=== PATIENT | male | born 1945 | race Caucasian/White ===

== ENCOUNTER → 2016-05-08 | Outpatient (CLI) | payer MEDICARE, OTHER ==
[2016-05-08 08:53] LABS: ABSOLUTE EOSINOPHILS # (AUTO) 0.1 10^3/uL (0.0-0.6); ABSOLUTE LYMPHOCYTES (AUTO) 2.2 10^3/uL (0.5-4.7); ABSOLUTE MONOCYTES (AUTO) 0.4 10^3/uL (0.1-1.4); ABSOLUTE NEUT (AUTO) 3.7 10^3/uL (1.7-8.2); BASOPHILS % (AUTO) 0.7 % (0-2); EOSINOPHILS % (AUTO) 2.2 % (0-6); HEMATOCRIT 45.5 % (37.9-51.0); HEMOGLOBIN 14.7 g/dL (13.5-17.0); HGB HCT DIFFERENCE -1.4; LYMPHOCYTES % (AUTO) 33.5 % (13-45); MEAN CORPUSCULAR HEMOGLOBIN 30.5 pg (27.0-33.4); MEAN CORPUSCULAR HGB CONC 32.2 g/dL (32.0-36.0); MEAN CORPUSCULAR VOLUME 95 fl (80-97); MONOCYTES % (AUTO) 5.9 % (3-13); RED BLOOD COUNT 4.81 10^6/uL (4.35-5.55); RED CELL DISTRIBUTION WIDTH 13.1 % (11.5-14.0); SEGMENTED NEUTROPHILS % (AUTO) 57.7 % (42-78); WHITE BLOOD COUNT 6.4 10^3/uL (4.0-10.5)
[2016-05-08 09:13] LABS: ALANINE AMINOTRANSFERASE 51 U/L (21-72); ALBUMIN 4.8 g/dL (3.5-5.0); ALKALINE PHOSPHATASE 60 U/L (38-126); ANION GAP 10 (5-19); ASPARTATE AMINO TRANSFERASE 34 U/L (17-59); BILIRUBIN,TOTAL 0.8 mg/dL (0.2-1.3); BLOOD UREA NITROGEN 14 mg/dL (7-20); CARBON DIOXIDE 31 mmol/L (22-30); CHLORIDE 106 mmol/L (98-107); CHOLESTEROL 155.46 mg/dL (0-200); CREATININE RESULT 0.82 mg/dL (0.52-1.25); Direct HDL 61 mg/dL (>40); GLUCOSE 95 mg/dL (75-110); TRIGLYCERIDES 103 mg/dL (<150)
[2016-05-08 09:23] LABS: DIRECT LDL 76 mg/dL (<100)
[2016-05-09 08:42] LABS: HEPATITIS C VIRUS AB <0.1 s/co ratio (0.0-0.9)
== END ==
LOC: OD 08:01
PROVIDERS: ATTEND Internal Medicine
DX: I10 Essential (primary) hypertension (principal); R35.1 Nocturia; E78.5 Hyperlipidemia, unspecified; M10.9 Gout, unspecified; K21.9 Gastro-esophageal reflux disease without esophagitis
CPT/HCPCS: 36415; 80053; 80061; 84153; 84443; 85025; 86704; 86705; 86706; 86707; 86803; 87340; 87350

== ENCOUNTER → 2017-06-10 | Outpatient (CLI) | payer MEDICARE, OTHER ==
[2017-06-10 11:12] LABS: ABSOLUTE EOSINOPHILS # (AUTO) 0.1 10^3/uL (0.0-0.6); ABSOLUTE LYMPHOCYTES (AUTO) 1.9 10^3/uL (0.5-4.7); ABSOLUTE MONOCYTES (AUTO) 0.4 10^3/uL (0.1-1.4); ABSOLUTE NEUT (AUTO) 3.5 10^3/uL (1.7-8.2); BASOPHILS % (AUTO) 0.8 % (0-2); EOSINOPHILS % (AUTO) 1.9 % (0-6); HEMATOCRIT 44.5 % (37.9-51.0); HEMOGLOBIN 15.1 g/dL (13.5-17.0); MEAN CORPUSCULAR HEMOGLOBIN 31.2 pg (27.0-33.4); MEAN CORPUSCULAR VOLUME 92 fl (80-97); PLATELET COUNT 186 10^3/uL (150-450); RED BLOOD COUNT 4.84 10^6/uL (4.35-5.55); RED CELL DISTRIBUTION WIDTH 13.2 % (11.5-14.0); SEGMENTED NEUTROPHILS % (AUTO) 59.3 % (42-78); TOTAL CELLS COUNTED % (AUTO) 100 %; WHITE BLOOD COUNT 5.9 10^3/uL (4.0-10.5)
[2017-06-10 11:51] LABS: ALANINE AMINOTRANSFERASE 58 U/L (21-72); ALBUMIN 4.9 g/dL (3.5-5.0); ALKALINE PHOSPHATASE 63 U/L (38-126); ANION GAP 15 (5-19); ASPARTATE AMINO TRANSFERASE 40 U/L (17-59); BILIRUBIN,DIRECT 0.1 mg/dL (0.0-0.4); BILIRUBIN,TOTAL 0.7 mg/dL (0.2-1.3); BLOOD UREA NITROGEN 19 mg/dL (7-20); CALCIUM 10.9 mg/dL (8.4-10.2); CARBON DIOXIDE 26 mmol/L (22-30); CHLORIDE 106 mmol/L (98-107); CHOLESTEROL 166.24 mg/dL (0-200); GLUCOSE 89 mg/dL (75-110); SODIUM 146.8 mmol/L (137-145); TOTAL PROTEIN 6.9 g/dL (6.3-8.2); TRIGLYCERIDES 122 mg/dL (<150)
[2017-06-10 12:01] LABS: DIRECT LDL 85 mg/dL (<100)
== END ==
LOC: OD 09:53
PROVIDERS: ATTEND Internal Medicine
DX: I10 Essential (primary) hypertension (principal); G47.33 Obstructive sleep apnea (adult) (pediatric); E78.5 Hyperlipidemia, unspecified; R35.1 Nocturia; R53.83 Other fatigue
CPT/HCPCS: 36415; 80053; 80061; 84153; 84443; 84550; 85025

== ENCOUNTER → 2017-12-07 | Outpatient (CLI) | payer MEDICARE, OTHER ==
[2017-12-07 09:46] LABS: ABSOLUTE EOSINOPHILS # (AUTO) 0.1 10^3/uL (0.0-0.6); ABSOLUTE LYMPHOCYTES (AUTO) 2.1 10^3/uL (0.5-4.7); ABSOLUTE MONOCYTES (AUTO) 0.3 10^3/uL (0.1-1.4); ABSOLUTE NEUT (AUTO) 3.5 10^3/uL (1.7-8.2); BASOPHILS % (AUTO) 0.7 % (0-2); EOSINOPHILS % (AUTO) 1.8 % (0-6); HEMATOCRIT 42.4 % (37.9-51.0); HEMOGLOBIN 14.7 g/dL (13.5-17.0); LYMPHOCYTES % (AUTO) 33.8 % (13-45); MEAN CORPUSCULAR HEMOGLOBIN 31.8 pg (27.0-33.4); MEAN CORPUSCULAR HGB CONC 34.7 g/dL (32.0-36.0); MEAN CORPUSCULAR VOLUME 92 fl (80-97); MONOCYTES % (AUTO) 5.6 % (3-13); PLATELET COUNT 194 10^3/uL (150-450); RED BLOOD COUNT 4.62 10^6/uL (4.35-5.55); RED CELL DISTRIBUTION WIDTH 13.1 % (11.5-14.0); SEGMENTED NEUTROPHILS % (AUTO) 58.1 % (42-78); TOTAL CELLS COUNTED % (AUTO) 100 %; WHITE BLOOD COUNT 6.1 10^3/uL (4.0-10.5)
[2017-12-07 10:07] LABS: ALANINE AMINOTRANSFERASE 46 U/L (21-72); ALBUMIN 4.6 g/dL (3.5-5.0); ALKALINE PHOSPHATASE 53 U/L (38-126); ANION GAP 14 (5-19); ASPARTATE AMINO TRANSFERASE 30 U/L (17-59); BILIRUBIN,DIRECT 0.3 mg/dL (0.0-0.4); BILIRUBIN,TOTAL 0.8 mg/dL (0.2-1.3); BLOOD UREA NITROGEN 14 mg/dL (7-20); CALCIUM 9.6 mg/dL (8.4-10.2); CARBON DIOXIDE 26 mmol/L (22-30); CHLORIDE 107 mmol/L (98-107); CHOLESTEROL 141.76 mg/dL (0-200); GLUCOSE 95 mg/dL (75-110); POTASSIUM 4.3 mmol/L (3.6-5.0); SODIUM 147.1 mmol/L (137-145); TRIGLYCERIDES 97 mg/dL (<150)
[2017-12-07 10:17] LABS: DIRECT LDL 58 mg/dL (<100)
== END ==
LOC: OD 08:03
PROVIDERS: ATTEND Internal Medicine
DX: I10 Essential (primary) hypertension (principal); E78.5 Hyperlipidemia, unspecified; R53.83 Other fatigue; R73.9 Hyperglycemia, unspecified; E03.9 Hypothyroidism, unspecified
CPT/HCPCS: 36415; 80053; 80061; 83036; 83735; 84443; 85025

== ENCOUNTER → 2018-10-21 | Outpatient (CLI) | payer MEDICARE, OTHER ==
[2018-10-21 08:47] LABS: ABSOLUTE BASOPHILS # (AUTO) 0.1 10^3/uL (0.0-0.2); ABSOLUTE EOSINOPHILS # (AUTO) 0.1 10^3/uL (0.0-0.6); ABSOLUTE MONOCYTES (AUTO) 0.4 10^3/uL (0.1-1.4); ABSOLUTE NEUT (AUTO) 3.6 10^3/uL (1.7-8.2); BASOPHILS % (AUTO) 0.9 % (0-2); EOSINOPHILS % (AUTO) 1.8 % (0-6); HEMATOCRIT 40.7 % (37.9-51.0); HEMOGLOBIN 14.1 g/dL (13.5-17.0); LYMPHOCYTES % (AUTO) 32.7 % (13-45); MEAN CORPUSCULAR HEMOGLOBIN 31.6 pg (27.0-33.4); MEAN CORPUSCULAR HGB CONC 34.5 g/dL (32.0-36.0); MEAN CORPUSCULAR VOLUME 91 fl (80-97); MONOCYTES % (AUTO) 6.1 % (3-13); PLATELET COUNT 181 10^3/uL (150-450); RED BLOOD COUNT 4.45 10^6/uL (4.35-5.55); SEGMENTED NEUTROPHILS % (AUTO) 58.5 % (42-78); TOTAL CELLS COUNTED % (AUTO) 100 %; WHITE BLOOD COUNT 6.1 10^3/uL (4.0-10.5)
[2018-10-21 09:08] LABS: ALANINE AMINOTRANSFERASE 57 U/L (21-72); ALBUMIN 4.7 g/dL (3.5-5.0); ALKALINE PHOSPHATASE 58 U/L (38-126); ANION GAP 9 (5-19); ASPARTATE AMINO TRANSFERASE 35 U/L (17-59); BLOOD UREA NITROGEN 19 mg/dL (7-20); CALCIUM 9.6 mg/dL (8.4-10.2); CARBON DIOXIDE 29 mmol/L (22-30); CHLORIDE 105 mmol/L (98-107); CHOLESTEROL 151.58 mg/dL (0-200); GLUCOSE 101 mg/dL (75-110); POTASSIUM 4.5 mmol/L (3.6-5.0); SODIUM 143.2 mmol/L (137-145)
[2018-10-21 09:10] LABS: TRIGLYCERIDES 122 mg/dL (<150)
[2018-10-21 09:14] LABS: BILIRUBIN,TOTAL 0.7 mg/dL (0.2-1.3)
[2018-10-21 09:19] LABS: DIRECT LDL 72 mg/dL (<100)
== END ==
LOC: OD 08:12
PROVIDERS: ATTEND Internal Medicine
DX: I10 Essential (primary) hypertension (principal); E78.5 Hyperlipidemia, unspecified; R53.83 Other fatigue; R35.1 Nocturia
CPT/HCPCS: 36415; 80053; 80061; 84153; 84443; 85025

== ENCOUNTER → 2019-06-22 | Outpatient (CLI) | payer MEDICARE, OTHER ==
[2019-06-22 10:29] LABS: ABSOLUTE BASOPHILS # (AUTO) 0.1 10^3/uL (0.0-0.2); ABSOLUTE EOSINOPHILS # (AUTO) 0.1 10^3/uL (0.0-0.6); ABSOLUTE LYMPHOCYTES (AUTO) 1.7 10^3/uL (0.5-4.7); ABSOLUTE MONOCYTES (AUTO) 0.3 10^3/uL (0.1-1.4); ABSOLUTE NEUT (AUTO) 3.6 10^3/uL (1.7-8.2); BASOPHILS % (AUTO) 0.9 % (0-2); EOSINOPHILS % (AUTO) 1.5 % (0-6); HEMATOCRIT 39.9 % (37.9-51.0); HEMOGLOBIN 14.3 g/dL (13.5-17.0); LYMPHOCYTES % (AUTO) 29.4 % (13-45); MEAN CORPUSCULAR HEMOGLOBIN 32.4 pg (27.0-33.4); MEAN CORPUSCULAR HGB CONC 35.8 g/dL (32.0-36.0); MEAN CORPUSCULAR VOLUME 91 fl (80-97); MONOCYTES % (AUTO) 5.7 % (3-13); PLATELET COUNT 184 10^3/uL (150-450); RED BLOOD COUNT 4.41 10^6/uL (4.35-5.55); RED CELL DISTRIBUTION WIDTH 13.2 % (11.5-14.0); SEGMENTED NEUTROPHILS % (AUTO) 62.5 % (42-78); TOTAL CELLS COUNTED % (AUTO) 100 %; WHITE BLOOD COUNT 5.8 10^3/uL (4.0-10.5)
[2019-06-22 10:51] LABS: ALBUMIN 4.6 g/dL (3.5-5.0); ALKALINE PHOSPHATASE 62 U/L (38-126); ANION GAP 10 (5-19); ASPARTATE AMINO TRANSFERASE 37 U/L (17-59); BILIRUBIN,DIRECT 0.3 mg/dL (0.0-0.4); BILIRUBIN,TOTAL 0.8 mg/dL (0.2-1.3); BLOOD UREA NITROGEN 20 mg/dL (7-20); CALCIUM 9.9 mg/dL (8.4-10.2); CARBON DIOXIDE 29 mmol/L (22-30); CHLORIDE 105 mmol/L (98-107); CHOLESTEROL 140.76 mg/dL (0-200); GLUCOSE 91 mg/dL (75-110); POTASSIUM 4.4 mmol/L (3.6-5.0); TOTAL PROTEIN 7.3 g/dL (6.3-8.2); TRIGLYCERIDES 97 mg/dL (<150); URIC ACID 5.9 mg/dL (3.5-8.5)
[2019-06-22 11:07] LABS: DIRECT LDL 72 mg/dL (<100)
== END ==
LOC: OD 09:09
PROVIDERS: ATTEND Internal Medicine
DX: I10 Essential (primary) hypertension (principal); E78.5 Hyperlipidemia, unspecified; M10.9 Gout, unspecified; R35.1 Nocturia
CPT/HCPCS: 36415; 80053; 80061; 84153; 84443; 84550; 85025

== ENCOUNTER 2019-12-09 10:11 | Day surgery (SDC) | payer MEDICARE, OTHER ==
[~2019-12-09 10:11] MED LIST: CHONDR SU A NA/HYALUR INTRAOC KIT (SURGICARE) ONE; EPINEPHRINE INJ/PF 1 MG/1 ML AMPULE ONE; KETOROLAC TROMETHAMINE 0.45% 4 DROP/0.4 ML DROPERETTE OD PRN; LIDOCAINE 1%/PHENYLEPHRINE 1.5% 0.8 ML SYRINGE ONE
[2019-12-09] MEDS ORDERED: MIDAZOLAM 2 MG/2 ML INJ ONE (10:28)
[2019-12-09] MEDS ORDERED: ONDANSETRON HCL INJ/PF 4 MG/2 ML SDV ONE (10:28)
[2019-12-09] MEDS ORDERED: FENTANYL CITRATE INJ/PF 100 MCG/2 ML AMPUL ONE (10:28)
[2019-12-09] MEDS: TETRACAINE HCL 0.5% OPH SOLN 4 ML OD PRN ×3 (10:45→11:16)
[2019-12-09] MEDS: TROPICAMIDE 1% OPH SOLN 15 ML OD PRN ×3 (10:45→11:07)
[2019-12-09] MEDS: BESIFLOXACIN HCL 0.6% OPH SUSP 5 ML BOTTLE OD PRN ×4 (10:45→11:37)
[2019-12-09] MEDS: CYCLOPENTOLATE 0.2%/PHENYLEPHRINE 1% OPH SOLN 2 ML OD PRN ×3 (10:45→11:07)
[2019-12-09] MEDS: DORZOLAMIDE HCL 2%/TIMOLOL MALEAT 0.5% OPH SOLN 10 ML OD PRN ×2 (11:37)
--- NOTE | 2019-12-09 12:06 | Operative Report ---
Operative Report-[facility] Operative Report: DATE OF SURGERY: December 09, 2019 PREOPERATIVE DIAGNOSIS: NUCLEAR CATARACT, RIGHT EYE. POSTOPERATIVE DIAGNOSIS: NUCLEAR CATARACT, RIGHT EYE. PROCEDURE PERFORMED: PHACOEMULSIFICATION WITH POSTERIOR CHAMBER INTRAOCULAR LENS IMPLANT, RIGHT EYE. SURGEON: Fermin Spears DO MEDICATIONS AND ANESTHESIA: Versed: IV Versed Tetracaine drops: 1 to 2 drops given as needed COMPLICATION: None INDICATIONS FOR SURGERY: Medical necessity: Best corrected visual acuity worse than 20/40 secondary to cataracts with impairment of ability to carry out needs or desired activities, blurred vision, visual distortion, reduced contrast sensitivity and/or glare with association functional impairment and supporting documentation/testing, and cataracts causing symptomatic impairment of visual functions not corrected with tolerable changes in glasses or contact lenses interfering with activities of daily life. PROCEDURE: Consent: The risks, benefits and alternatives of this procedures was discussed with the patient. The patient read and signed the consent forms, was identified and was seated in the exam chair. IOL: MX 60 E 21.0 IOL Diopters: Phacoemulsification with posterior chamber intraocular lens implant: The face was prepped with 5% povidone iodine solution, and a few drops of 5% povidone iodine solution was instilled into the inferior fornix. A non-fenestrated drape was placed over the eye and the lids were parted with the speculum. A paracentesis was made with a 15 degree blade, and 1% lidocaine MPF followed by viscoelastic was injected into the anterior chamber. A 2.4 mm metal micro- keratome was used to create a temporal clear corneal incision. A circular anterior capsulorrhexis was created, followed by hydro-dissection and hydro- delineation. The phacoemulsification hand piece was inserted and the nucleus was removed with the Phaco chop technique. The irrigation-aspiration hand piece was used to remove the residual cortex, and vacuum the posterior capsule. The capsular bag was inflated and viscoelastic and the above-mentioned IOL was injected into the eye with care to insert both leaning and trailing haptics in the capsular bag. The irrigation/aspiration hand piece was reinserted to remove residual viscoelastic from the capsular bag and anterior chamber. The corneal incision was hydrated, and anterior chamber was inflated with sterile BSS via the paracentesis site, and found to be watertight. Postop medication: 1 drop of prednisolone into operative by followed by 1 drop of Cosopt into operative eye followed by 1 drop of Besivance intraoperative by other:
== END 2019-12-09 12:10 | disposition home or self-care (01) ==
LOC: SC 10:11
PROVIDERS: ATTEND Ophthalmology
DX: H25.11 Age-related nuclear cataract, right eye (principal); I10 Essential (primary) hypertension; E78.00 Pure hypercholesterolemia, unspecified; Z79.899 Other long term (current) drug therapy; Z79.82 Long term (current) use of aspirin; Z87.891 Personal history of nicotine dependence; G47.33 Obstructive sleep apnea (adult) (pediatric); Z85.828 Personal history of other malignant neoplasm of skin
CPT/HCPCS: 66984; V2632; J2250; J3490 ×3; A9270; J0171; J2405; 142; J3010

== ENCOUNTER 2019-12-23 07:26 | Day surgery (SDC) | payer MEDICARE, OTHER ==
[~2019-12-23 07:26] MED LIST changes: -CHONDR SU A NA/HYALUR INTRAOC KIT (SURGICARE) ONE; -EPINEPHRINE INJ/PF 1 MG/1 ML AMPULE ONE; +FENTANYL CITRATE INJ/PF 100 MCG/2 ML AMPUL ONE; -KETOROLAC TROMETHAMINE 0.45% 4 DROP/0.4 ML DROPERETTE OD PRN; +KETOROLAC TROMETHAMINE 0.45% 4 DROP/0.4 ML DROPERETTE OS PRN; -LIDOCAINE 1%/PHENYLEPHRINE 1.5% 0.8 ML SYRINGE ONE; +MIDAZOLAM 2 MG/2 ML INJ ONE; +ONDANSETRON HCL INJ/PF 4 MG/2 ML SDV ONE
[2019-12-23] MEDS ORDERED: EPINEPHRINE INJ/PF 1 MG/1 ML AMPULE ONE (07:34)
[2019-12-23] MEDS ORDERED: LIDOCAINE 1%/PHENYLEPHRINE 1.5% 0.8 ML SYRINGE ONE (07:34)
[2019-12-23] MEDS ORDERED: CHONDR SU A NA/HYALUR INTRAOC KIT (SURGICARE) ONE (07:35)
[2019-12-23] MEDS: BESIFLOXACIN HCL 0.6% OPH SUSP 5 ML BOTTLE OS PRN ×4 (08:03→08:57)
[2019-12-23] MEDS: TROPICAMIDE 1% OPH SOLN 15 ML OS PRN ×3 (08:03→08:23)
[2019-12-23] MEDS: CYCLOPENTOLATE 0.2%/PHENYLEPHRINE 1% OPH SOLN 2 ML OS PRN ×3 (08:03→08:23)
[2019-12-23] MEDS: TETRACAINE HCL 0.5% OPH SOLN 4 ML OS PRN ×3 (08:04→08:39)
[2019-12-23] MEDS: DORZOLAMIDE HCL 2%/TIMOLOL MALEAT 0.5% OPH SOLN 10 ML OS PRN ×2 (08:57)
[2019-12-23] MEDS: PREDNISOLONE ACETATE 1% OPH SUSP 5 ML OS PRN ×2 (08:57)
--- NOTE | 2019-12-23 15:47 | Operative Report ---
Operative Report[facility] Operative Report: DATE OF SURGERY: December 23, 2019 PREOPERATIVE DIAGNOSIS: NUCLEAR CATARACT, LEFT EYE. POSTOPERATIVE DIAGNOSIS: NUCLEAR CATARACT, LEFT EYE. PROCEDURE PERFORMED: PHACOEMULSIFICATION WITH POSTERIOR CHAMBER INTRAOCULAR LENS IMPLANT, LEFT EYE. SURGEON: Fermin Spears DO MEDICATIONS AND ANESTHESIA: Versed: IV Versed Tetracaine drops: 1 to 2 drops given as needed COMPLICATION: None INDICATIONS FOR SURGERY: Medical necessity: Best corrected visual acuity worse than 20/40 secondary to cataracts with impairment of ability to carry out needs or desired activities, blurred vision, visual distortion, reduced contrast sensitivity and/or glare with association functional impairment and supporting documentation/testing, and cataracts causing symptomatic impairment of visual functions not corrected with tolerable changes in glasses or contact lenses interfering with activities of daily life. PROCEDURE: Consent: The risks, benefits and alternatives of this procedures was discussed with the patient. The patient read and signed the consent forms, was identified and was seated in the exam chair. IOL: MX 60 E 20.5 IOL Diopters: Phacoemulsification with posterior chamber intraocular lens implant: The face was prepped with 5% povidone iodine solution, and a few drops of 5% povidone iodine solution was instilled into the inferior fornix. A non-fenestrated drape was placed over the eye and the lids were parted with the speculum. A paracentesis was made with a 15 degree blade, and 1% lidocaine MPF followed by viscoelastic was injected into the anterior chamber. A 2.4 mm metal micro- keratome was used to create a temporal clear corneal incision. A circular anterior capsulorrhexis was created, followed by hydro-dissection and hydro- delineation. The phacoemulsification hand piece was inserted and the nucleus was removed with the Phaco chop technique. The irrigation-aspiration hand piece was used to remove the residual cortex, and vacuum the posterior capsule. The capsular bag was inflated and viscoelastic and the above-mentioned IOL was injected into the eye with care to insert both leaning and trailing haptics in the capsular bag. The irrigation/aspiration hand piece was reinserted to remove residual viscoelastic from the capsular bag and anterior chamber. The corneal incision was hydrated, and anterior chamber was inflated with sterile BSS via the paracentesis site, and found to be watertight. Postop medication:1 drop of prednisolone into operative by followed by 1 drop of Cosopt into operative eye followed by 1 drop of Besivance intraoperative by Other:
== END 2019-12-23 09:30 | disposition home or self-care (01) ==
LOC: SC 07:26
PROVIDERS: ATTEND Ophthalmology
DX: H25.12 Age-related nuclear cataract, left eye (principal); Z98.41 Cataract extraction status, right eye; F17.210 Nicotine dependence, cigarettes, uncomplicated; I10 Essential (primary) hypertension; E78.00 Pure hypercholesterolemia, unspecified; M10.9 Gout, unspecified; G47.33 Obstructive sleep apnea (adult) (pediatric); Z85.828 Personal history of other malignant neoplasm of skin; Z79.899 Other long term (current) drug therapy; Z79.82 Long term (current) use of aspirin
CPT/HCPCS: 142; J0171; J2250; J2405; J3010; J3490; V2632

== ENCOUNTER → 2020-02-29 | Outpatient (CLI) | payer MEDICARE, OTHER ==
[2020-02-29 12:32] VITALS: BP 151/68
--- NOTE | 2020-02-29 12:32 | ER [facility] ASSESSMENT REPORT ---
Intake - In the Last 14 days Have you traveled outside [place]?: No Have you been in close contact with someone CONFIRMED: No Worked in Healthcare?: No - Symptoms Subjective Fever(Inman feverish): No Chills: Yes Muscule Aches: No Runny Nose: No Sore Throat: No Cough (New or worsening chronic cough): Yes Shortness of breath: No Nausea or Vomiting: No Headache: Yes Abdominal Pain: No Diarrhea(3 or more loose stools in last 24 hours): No - Do you have any of the following Chronic lung disease: Asthma or emphysema or COPD: No Cystic Fibrosis: No Diabetes: No High Blood Pressure: Yes Cardiovascular Disease: Yes Chronic Kidney Disease: No Chronic Liver Disease: No Chronic blood disorder like Sickle Cell Disease: No Weak immune system due to disease or medication: No Neurologic condition that limits movement: No Developmental delay - Moderate to Severe: No Recent (within past 2 weeks) or current : No Morbid Obesity (>100 pounds over ideal weight): No - Objective Temperature: 98.1 F Pulse Rate: 72 Respiratory Rate: 18 Blood Pressure: 151/68 O2 Sat by Pulse Oximetry: 96 Objective: Given above, testing performed: If Testing Performed: Test Specimen Type Sent to General - General Information source: Patient Notes: Patient presents to the [facility] for screening for the coronavirus. Patient reports having chills, cough and headache for the past week. Patient has an underlying history of high blood pressure and cholesterol. - Related Data Allergies/Adverse Reactions: No Known Allergies Allergy (Verified 12/23/19 08:04) Past Medical History - General Information source: Patient - Social History Smoking Status: Former Smoker - Past Medical History Cardiac Medical History: Reports: Hx Hypercholesterolemia, Hx Hypertension Denies: Hx Coronary Artery Disease, Hx Heart Attack Neurological Medical History: Denies: Hx Cerebrovascular Accident, Hx Seizures GI Medical History: Denies: Hx Hepatitis, Hx Hiatal Hernia, Hx Ulcer Musculoskeletal Medical History: Reports Hx Arthritis Infectious Medical History: Denies: Hx Hepatitis Past Surgical History: Reports: Other - Eye surgery. Denies: Hx Open Heart Surgery, Hx Pacemaker Physical Exam - Notes Notes: The patient was evaluated during the global Covid 19 pandemic, and that diagnosis was suspected/considered upon their initial presentation. Their evaluation, treatment and testing was consistent with current guidelines for patients who present with complaints or symptoms that may be related to Covid 19. Full physical exam could not be performed due to covid 19 isolation protocols. Constitutional: Nontoxic appearance, no acute distress Eyes: Nonicteric, extraocular movements intact, sclera clear Cardiovascular: Heart rate and rhythm regular, no JVD Respiratory: Breath sounds clear bilaterally, nonlabored breathing, no use of accessory muscles, no tachypnea Gastrointestinal: Abdomen not distended Muculoskeletal: Moves all extremities well Skin: Normal color Neuro: Awake alert oriented, normal speech Psych: Normal mood and affect Diagnostic Results Laboratory Results: Patient presents with upper respiratory symptoms worrisome for possible Covid 19. Patient does not have emergency worrying symptoms such as difficulty breathing, shortness of breath, chest pain, pressure, confusion or cyanosis. Patient appears suitable for discharge as vital signs are stable and patient is nontoxic in appearance. Good return precautions have been discussed with patient, patient verbalized understanding and is agreeable with discharge plan of care at this time. Patient Education/Counseling Counseling/Education: Patient was provided with discharge information including: As a person under investigation for Covid 19, the [place] department of Health and Human Services, division of public health advises you to adhere to the following guidance until your test results are reported to you. If your test result is positive, you will receive additional information from your provider and your local health department at that time. Remain at home until you are cleared by the health provider or public health authorities. Keep a log of visitors to your home, notify any visitors to your home of your isolation status. If you plan to move to a new address or leave the [facility], notify the local health department in your County. Call your doctor or seek care if you have an urgent medical need. Before seeking medical care, call ahead to get instructions from the provider before arriving at the medical office clinic or hospital. Notify them that you are being tested for the virus that causes Covid 19 so that arrangements can be made, as necessary, to prevent transmission to others in the healthcare setting. Next, notify the local health department in your county. If a medical emergency arises and you need to call 911, inform the first responders that you are being tested for the virus that causes Covid 19. Next, notify the local health department in your county. [facility] Discharge - Discharge Clinical Impression: Encounter for screening laboratory testing for COVID-19 virus Condition: Stable Disposition: Home; Selfcare
[2020-02-29 13:02] LABS: A TYPE INFLUENZA AG NEGATIVE (NEGATIVE); B INFLUENZA AG NEGATIVE (NEGATIVE)
== END ==
LOC: RDC 11:19
PROVIDERS: ATTEND Nurse Practitioner Family
DX: Z20.828 Contact with and (suspected) exposure to other viral communicable diseases (principal)
CPT/HCPCS: 87804; 99201; U0003; G0463; C9803; 87635; 99211

== ENCOUNTER 2020-04-26 11:44 | Inpatient (IN) | payer MEDICARE, OTHER ==
--- NOTE | 2020-04-26 12:59 | ER Document Report ---
ED Medical Screen (RME) - General Stated Complaint: FEVER/POSSIBLE SEPSIS Time Seen by Provider: 04/26/20 12:51 Primary Care Provider: GUERRERO POST MD [Primary Care Provider] - Follow up as needed TRAVEL OUTSIDE OF THE [place] IN LAST 30 DAYS: No - HPI Notes: 04/26/20 12:57 74-year-old male with a history of hypertension presents to the emergency room today for fevers, states that she believes he has had a bladder infection for the last 3 days and he is increased confusion today. They were on their way to go to [place] to see his urologist, Dr. Grimes, for concern of bladder infection but he did fall from the toilet onto the floor, they called the ambulance and brought him to [facility] ED. Denies any head trauma or change in level consciousness. is concerned that there is some confusion and weakness related to the bladder infection. Patient is not on any antibiotics. He did test negative for Covid in the ambulance. Denies any chest pain, shortness of breath, nausea, vomiting, diarrhea, cough, cold. has noticed some hematuria in his urine I have greeted and performed a rapid initial assessment of this patient. A comprehensive ED assessment and evaluation of the patient, analysis of test results and completion of the medical decision making process will be conducted by additional ED providers. PHYSICAL EXAMINATION: GENERAL: Chronically ill well-nourished and in no acute distress. NECK: Normal range of motion CV: s1, s2 regular LUNGS: No respiratory distress The patient was evaluated during a global COVID-19 pandemic and that diagnosis was suspected/considered upon their initial presentation. Their evaluation, treatment and testing was consistent with current guidelines for patients who present with complaints or symptoms and may be related to COVID-19. - Related Data Allergies/Adverse Reactions: No Known Allergies Allergy (Verified 12/23/19 08:04) Past Medical History - Past Medical History Cardiac Medical History: Reports: Hx Hypercholesterolemia, Hx Hypertension Denies: Hx Coronary Artery Disease, Hx Heart Attack Neurological Medical History: Denies: Hx Cerebrovascular Accident, Hx Seizures GI Medical History: Denies: Hx Hepatitis, Hx Hiatal Hernia, Hx Ulcer Musculoskeltal Medical History: Reports Hx Arthritis Infectious Medical History: Denies: Hx Hepatitis Past Surgical History: Reports: Other - Eye surgery. Denies: Hx Open Heart Surgery, Hx Pacemaker - Immunizations Hx Diphtheria, Pertussis, Tetanus Vaccination: No - unsure Physical Exam - Vital signs Vitals: Temp Pulse Resp BP Pulse Ox 100.6 F H 94 21 H 134/74 H 94 04/26/20 12:13 04/26/20 12:13 04/26/20 12:13 04/26/20 12:13 04/26/20 12:13 Course - Vital Signs Vital signs: Temp Pulse Resp BP Pulse Ox 100.6 F H 94 21 H 134/74 H 94 04/26/20 12:13 04/26/20 12:13 04/26/20 12:13 04/26/20 12:13 04/26/20 12:13 Doctor's Discharge - Discharge Referrals: GUERRERO POST MD [Primary Care Provider] - Follow up as needed
[2020-04-26] MEDS ORDERED: ACETAMINOPHEN 325 MG TABLET PO ONE (13:10)
--- NOTE | 2020-04-26 13:33 | RADIOLOGY REPORT (SQ) ---
EXAM DESCRIPTION: CHEST SINGLE VIEW IMAGES COMPLETED DATE/TIME: 04/26/2020 1:24 pm REASON FOR STUDY: weakness, fever COMPARISON: 01/28/2013. EXAM PARAMETERS: NUMBER OF VIEWS: One view. TECHNIQUE: Single frontal radiographic view of the chest acquired. RADIATION DOSE: NA LIMITATIONS: None. FINDINGS: LUNGS AND PLEURA: No opacities, masses or pneumothorax. No pleural effusion. MEDIASTINUM AND HILAR STRUCTURES: No masses. Contour normal. HEART AND VASCULAR STRUCTURES: Heart normal in size. Normal vasculature. BONES: No acute findings. HARDWARE: None in the chest. OTHER: No other significant finding. IMPRESSION: NO ACUTE RADIOGRAPHIC FINDING IN THE CHEST. TECHNICAL DOCUMENTATION: JOB ID: [id number] 2010 [employer]- All Rights Reserved Reading location - IP/workstation name: [email or web address]
[2020-04-26 14:24] LABS: HEMATOCRIT 36.2 % (37.9-51.0); HEMOGLOBIN 12.2 g/dL (13.5-17.0); MEAN CORPUSCULAR HGB CONC 33.7 g/dL (32.0-36.0); MEAN CORPUSCULAR VOLUME 89 fl (80-97); PLATELET COUNT 219 10^3/uL (150-450); RED BLOOD COUNT 4.06 10^6/uL (4.35-5.55); RED CELL DISTRIBUTION WIDTH 13.4 % (11.5-14.0); WHITE BLOOD COUNT 20.5 10^3/uL (4.0-10.5)
[2020-04-26 14:42] LABS: ALBUMIN 4.2 g/dL (3.5-5.0); ALKALINE PHOSPHATASE 85 U/L (38-126); ANION GAP 14 (5-19); ASPARTATE AMINO TRANSFERASE 32 U/L (17-59); BILIRUBIN,DIRECT 0.3 mg/dL (0.0-0.4); BILIRUBIN,TOTAL 0.9 mg/dL (0.2-1.3); BLOOD UREA NITROGEN 28 mg/dL (7-20); CALCIUM 9.7 mg/dL (8.4-10.2); CARBON DIOXIDE 24 mmol/L (22-30); CHLORIDE 103 mmol/L (98-107); GLUCOSE 158 mg/dL (75-110); POTASSIUM 4.1 mmol/L (3.6-5.0); TOTAL PROTEIN 7.1 g/dL (6.3-8.2)
[2020-04-26 14:48] LABS: ABSOLUTE LYMPHOCYTES# (MANUAL) 0.8 10^3/uL (0.5-4.7); ABSOLUTE MONOCYTES # (MANUAL) 0.8 10^3/uL (0.1-1.4); BAND NEUTROPHILS % (MANUAL) 3 % (3-5); BASOPHILS % (MANUAL) 0 % (0-2); EOSINOPHILS % (MANUAL) 0 % (0-6); LYMPHOCYTES % (MANUAL) 4 % (13-45); MONOCYTES % (MANUAL) 4 % (3-13); SEGMENTED NEUTROPHILS % (MAN) 89 % (42-78); TOTAL CELLS COUNTED 100
[2020-04-26 14:49] LABS: PLATELET COMMENT ADEQUATE; POLYCHROMASIA SLIGHT; TOXIC GRANULATION SLIGHT
[2020-04-26 15:28] LABS: APPEARANCE,URINE CLOUDY; BILIRUBIN,URINE NEGATIVE (NEGATIVE); COLOR,URINE RED; GLUCOSE, URINE NEGATIVE (NEGATIVE); KETONES,URINE NEGATIVE (NEGATIVE); LEUKOCYTE ESTERASE,URINE MODERATE (NEGATIVE); NITRITE,URINE NEGATIVE (NEGATIVE); PROTEIN,URINE 100 mg/dL (NEGATIVE); UROBILINOGEN,URINE NEGATIVE mg/dL (<2.0)
--- NOTE | 2020-04-26 17:57 | ER Document Report ---
ED General - General Chief Complaint: Urinary Problem Stated Complaint: FEVER/POSSIBLE SEPSIS Time Seen by Provider: 04/26/20 12:51 TRAVEL OUTSIDE OF THE [place].S[place] IN LAST 30 DAYS: No - HPI Notes: 74-year-old male presents for concerns for a bladder infection. Patient sees urology and last week was seen for urinary retention, with reported that 2 L of urine was drained in office, he was started on Flomax and was started on a self cath routine. Patient was supposed to see urology today, however he had an episode where he became dizzy when standing up after using the bathroom, he slid over on the side of the toilet and was unable to get him up, therefore she called EMS. states she is concerned that he is having a bladder infection, he has seemed confused over the past 3 days and she started noticing some blood in his urine yesterday. He is also been intermittently febrile, stating that the fever and chills seems to come in phases. Patient additionally could not pass any urine today with attempt to self cath. Patient denies abdominal pain, flank pain, cough, shortness of breath. His rapid Covid test was negative with EMS. - Related Data Allergies/Adverse Reactions: No Known Allergies Allergy (Verified 12/23/19 08:04) Past Medical History - General Information source: Patient - Social History Smoking Status: Never Smoker Chew tobacco use (# tins/day): No Drug Abuse: None Family History: Reviewed & Not Pertinent - Past Medical History Cardiac Medical History: Reports: Hx Hypercholesterolemia, Hx Hypertension Denies: Hx Coronary Artery Disease, Hx Heart Attack Neurological Medical History: Denies: Hx Cerebrovascular Accident, Hx Seizures GI Medical History: Denies: Hx Hepatitis, Hx Hiatal Hernia, Hx Ulcer Musculoskeletal Medical History: Reports Hx Arthritis Infectious Medical History: Denies: Hx Hepatitis Past Surgical History: Reports: Other - Eye surgery. Denies: Hx Open Heart Surgery, Hx Pacemaker - Immunizations Hx Diphtheria, Pertussis, Tetanus Vaccination: No - unsure Hx Pneumococcal Vaccination: 04/22/14 Review of Systems - Review of Systems Constitutional: Chills, Fever EENT: No symptoms reported Cardiovascular: denies: Chest pain Respiratory: denies: Cough, Short of breath Gastrointestinal: denies: Abdominal pain, Diarrhea, Nausea, Vomiting Genitourinary: See HPI Male Genitourinary: No symptoms reported Musculoskeletal: No symptoms reported Skin: No symptoms reported Hematologic/Lymphatic: No symptoms reported Neurological/Psychological: Confusion Physical Exam - Vital signs Vitals: Temp Pulse Resp BP Pulse Ox 100.6 F H 94 21 H 134/74 H 94 04/26/20 12:13 04/26/20 12:13 04/26/20 12:13 04/26/20 12:13 04/26/20 12:13 - General General appearance: Appears well, Alert In distress: None - HEENT Head: Normocephalic, Atraumatic Extraocular movements intact: Yes Pupils: PERRL - Respiratory Breath sounds: Normal - Cardiovascular Rhythm: Regular Heart sounds: Normal auscultation - Abdominal Distension: No distension Bowel sounds: Normal Tenderness: Nontender - Back Back: No: CVA tenderness - Extremities General upper extremity: Normal ROM General lower extremity: Normal ROM. No: Edema - Neurological Neuro grossly intact: Yes Cognition: Normal Orientation: AAOx4 Course - Re-evaluation Re-evalutation: 74-year-old male with fever, altered mental status and concerns for UTI, he is recently started self cathing for urinary retention. He is slightly febrile 100.6, not tachycardic, not hypotensive. He is alert answer questions appropriately, abdomen is soft and without focal tenderness. He had labs and urine done through triage. Urine appears to be consistent with UTI, have ordered Zosyn for empiric coverage. He also has a marked leukocytosis of 28 with left shift. KLAUS present. Also give 1 L of fluids. Discussed with that patient will need to be admitted for complicated UTI management as he does meet SIRS criteria given his fever and leukocytosis. 04/26/20 20:[address] Callejas. He advises that a Wooten should be placed, patient should be discharged home and to see urology tomorrow as admitting him is high risk for Covid exposure. 04/26/20 21:58 Patient's is uncomfortable taking him home, she is very concerned over the current infection, she also has appointments tomorrow and will not be at home with him, she has been made aware that there are numerous Covid positive patients in the hospital and he is actually at a higher risk to contract Covid, she is aware and accepts the risks 04/26/20 22:47 Patient to be admitted, Cr worsening on repeat - Vital Signs Vital signs: Temp Pulse Resp BP Pulse Ox 98.9 F 74 16 118/61 97 04/26/20 23:55 04/26/20 23:55 04/26/20 23:55 04/26/20 23:55 04/26/20 23:55 - Laboratory Results Result Diagrams: 04/26/20 21:27 04/26/20 21:27 Laboratory Results Interpreted: 04/26/20 04/26/20 04/26/20 12:20 13:50 13:57 WBC 20.5 H RBC 4.06 L Hgb 12.2 L Hct 36.2 L Seg Neuts % (Manual) 89 H Band Neutrophils % Lymphocytes % (Manual) 4 L Monocytes % (Manual) Abs Neuts (Manual) 18.9 H Sodium BUN Creatinine Est GFR ( Amer) Est GFR (MDRD) Non-Af Glucose POC Glucose 156 H Urine Protein 100 H Urine Blood LARGE H Ur Leukocyte Esterase MODERATE H 04/26/20 04/26/20 04/26/20 13:57 21:27 21:27 WBC 22.6 H RBC 3.40 L Hgb 10.5 L Hct 30.0 L Seg Neuts % (Manual) 89 H Band Neutrophils % 2 L Lymphocytes % (Manual) 7 L Monocytes % (Manual) 2 L Abs Neuts (Manual) 20.6 H Sodium 136.4 L BUN 28 H 34 H Creatinine 1.72 H 1.93 H Est GFR ( Amer) 47 L 41 L Est GFR (MDRD) Non-Af 39 L 34 L Glucose 158 H 134 H POC Glucose Urine Protein Urine Blood Ur Leukocyte Esterase Critical Laboratory Results Reviewed: No Critical Results - Radiology Results Critical Radiology Results Reviewed: No Critical Results Discharge - Discharge Clinical Impression: Bacterial UTI, KLAUS (acute kidney injury) Sepsis Qualifiers: Sepsis type: sepsis due to unspecified organism Sepsis acute organ dysfunction status: with acute organ dysfunction Severe sepsis acute organ dysfunction type: acute renal failure Acute renal failure type: unspecified Severe sepsis shock status: without septic shock Qualified Code(s): A41.9 - Sepsis, unspecified organism Disposition: ADMITTED INPATIENT Admitting Provider: Júnior (Hospitalist) Unit Admitted: Medical Floor
[2020-04-26] MEDS ORDERED: PIPERACILLIN/TAZOBACTAM 4.5 GM VIAL IV ONE (17:59)
[2020-04-26] MEDS ORDERED: RINGERS SOLUTION,LACTATED 1,000 ML IV ONE (18:14)
--- NOTE | 2020-04-26 20:39 | RADIOLOGY REPORT (SQ) ---
EXAM DESCRIPTION: CT HEAD WITHOUT IV CONTRAST COMPLETED DATE/TME: 04/26/2020 18:59 CLINICAL HISTORY: 74 years, Male, fall, eval injury COMPARISON: None. TECHNIQUE: Axial images without IV contrast. Sagittal coronal reconstruction. Images stored on PACS. All CT scanners at this facility use dose modulation, iterative reconstruction, and/or weight based dosing when appropriate to reduce radiation dose to as low as reasonably achievable (ALARA). FINDINGS: Drti-pz-eviswepk ventriculomegaly. Less prominent cortical sulci especially upper slices of the brain. No acute intra-axial or extra-axial abnormalities. Paranasal sinuses, mastoid air cells and bony calvarium are unremarkable. IMPRESSION: 1. No acute intracranial findings. 2. Ventricles mildly larger compared to cortical sulci. Differential diagnosis between atrophy that is more central versus NPH.
--- NOTE | 2020-04-26 20:45 | RADIOLOGY REPORT (SQ) ---
EXAM DESCRIPTION: CT CERVICAL SPINE WITHOUT IV CONTRAST COMPLETED DATE/TME: 04/26/2020 18:59 CLINICAL HISTORY: 74 years, Male, fall, eval injury COMPARISON: None. TECHNIQUE: Axial images without IV contrast. Sagittal coronal reconstruction. Images stored on PACS. All CT scanners at this facility use dose modulation, iterative reconstruction, and/or weight based dosing when appropriate to reduce radiation dose to as low as reasonably achievable (ALARA). FINDINGS: No evidence for fracture dislocation. No significant posterior discopathy or central stenosis. Nonprominent facet disease and left foraminal stenosis. No suspicious prevertebral soft tissue swelling. Bilateral proximal internal carotid atherosclerotic disease. IMPRESSION: 1. No acute findings in the cervical spine. No significant stenosis. 2. Atherosclerotic proximal internal carotid arteries.
[2020-04-26 21:40] LABS: HEMOGLOBIN 10.5 g/dL (13.5-17.0); MEAN CORPUSCULAR HEMOGLOBIN 30.8 pg (27.0-33.4); MEAN CORPUSCULAR HGB CONC 34.9 g/dL (32.0-36.0); MEAN CORPUSCULAR VOLUME 88 fl (80-97); PLATELET COUNT 185 10^3/uL (150-450); RED CELL DISTRIBUTION WIDTH 13.7 % (11.5-14.0); WHITE BLOOD COUNT 22.6 10^3/uL (4.0-10.5)
[2020-04-26 21:55] LABS: ABSOLUTE LYMPHOCYTES# (MANUAL) 1.6 10^3/uL (0.5-4.7); ABSOLUTE MONOCYTES # (MANUAL) 0.5 10^3/uL (0.1-1.4); BAND NEUTROPHILS % (MANUAL) 2 % (3-5); BASOPHILS % (MANUAL) 0 % (0-2); EOSINOPHILS % (MANUAL) 0 % (0-6); LYMPHOCYTES % (MANUAL) 7 % (13-45); MONOCYTES % (MANUAL) 2 % (3-13); SEGMENTED NEUTROPHILS % (MAN) 89 % (42-78); TOTAL CELLS COUNTED 100
[2020-04-26 21:56] LABS: PLATELET COMMENT ADEQUATE; RBC MORPHOLOGY COMMENT NORMO-CYTIC/CHROMIC
[2020-04-26 21:58] LABS: ANION GAP 6 (5-19); BLOOD UREA NITROGEN 34 mg/dL (7-20); CALCIUM 9.1 mg/dL (8.4-10.2); CARBON DIOXIDE 27 mmol/L (22-30); CHLORIDE 103 mmol/L (98-107); GLUCOSE 134 mg/dL (75-110); POTASSIUM 4.1 mmol/L (3.6-5.0); TOXIC GRANULATION SLIGHT
[2020-04-26] MEDS ORDERED: ONDANSETRON 4 MG TAB.RAPDIS PO PRN (22:45)
[2020-04-26] MEDS ORDERED: ONDANSETRON HCL INJ/PF 4 MG/2 ML SDV IV PRN (22:45)
[2020-04-26] MEDS ORDERED: CEFTRIAXONE 2 GM/D5W RTU 2 GM/50 ML RTUPB IV ONE (23:00)
--- NOTE | 2020-04-26 23:08 | PDOC H&P ---
History of Present Illness Admission Date/PCP: 04/26/20 22:51 GUERRERO POST MD History of Present Illness: CLAUDINE PHAN is a 74 year old male with past medical history significant for BPH followed by urology, HTN, HLD who presents to the ED after 1 week of fever/chills/rigors/intermittent hematuria and 1 day history of collapse due to generalized weakness and fatigue. Approximately 1 week ago patient was seen by urology for urinary retention and BPH, sent home with instructions for self catheterization 4 times per day however patient states he has not been doing this and that most has done it 3 times per day. He states he simply does not feel the urge to urinate and does not catheterize himself when he does not have the urge. I counseled him he may not be able to sense urinary retention anymore. Urology started the patient on Flomax and told him to follow-up in 1 month. Over the past week, patient has gotten progressively more ill with the above symptoms and he called his urologist who told the patient to go to the ER. On admission, patient had a white blood cell count over 20, UA clearly infected, elevated creatinine and repeat BMP showed an even higher creatinine. I instructed the ER to place Wooten catheter and start antibiotics. was notified of plan to admit the patient and the risks of COVID-19 infection from hospitalization were discussed with her and she agreed to hospitalization rather than discharge home with antibiotics and close follow-up. Given worsening labs I am in agreement with this plan. Patient admitted for UTI and sepsis. Antihypertensives will be held due to relative low BP and dehydration. IV fluids, antibiotics. Nephrology consult may be needed if creatinine continues to rise. Patient and aware that we do not have urology in this facility. Past Medical History Cardiac Medical History: Reports: Hyperlipidema, Hypertension Denies: Coronary Artery Disease, Myocardial Infarction Neurological Medical History: Denies: Seizures GI Medical History: Denies: Hepatitis, Hiatal Hernia Musculoskeltal Medical History: Reports: Arthritis Hematology: Denies: Anemia, Sickle Cell Disease Past Surgical History Past Surgical History: Reports: Other - Eye surgery Denies: Pacemaker Social History Information Source: Patient, Emergency Med Personnel Lives with: Family Smoking Status: Never Smoker Electronic Cigarette use?: No Frequency of Alcohol Use: Occasional Hx Recreational Drug Use: No Hx Prescription Drug Abuse: No - Advance Directive Resuscitation Status: Do Not Resuscitate Surrogate healthcare decision maker:: Admitting diagnosis: UTI with sepsis All aspects of code status discussed with patient/POA including cardioversion, chest compressions, and intubation and the patient/POA indicated they wish to be DNR/DNI MPOA is designated as: Significant other, Shantell Martinez Time spent: Greater than 16 minutes Family History Family History: None, Reviewed & Not Pertinent Parental Family History Reviewed: Yes Children Family History Reviewed: Yes Sibling(s) Family History Reviewed.: Yes Medication/Allergy Home Medications: Allopurinol [Zyloprim] 300 mg PO DAILY 02/03/16 Aspirin [Aspirin EC] 81 mg PO DAILY 02/03/16 Atorvastatin Calcium [Lipitor 40 mg Tablet] 40 mg PO QHS 02/03/16 Colchicine [Colcrys] 0.6 mg PO DAILY PRN 02/03/16 Fluticasone Propionate [Flovent Diskus 50 mcg] 1 puff IH ASDIR PRN 02/03/16 Lisinopril 10 mg PO DAILY 02/03/16 Metoprolol Succinate [Toprol Xl 50 mg Tab.sr] 50 mg PO DAILY 02/03/16 Allergies/Adverse Reactions: No Known Allergies Allergy (Verified 12/23/19 08:04) Review of Systems All systems: reviewed and no additional remarkable complaints except as stated - Per HPI otherwise negative Physical Exam Vital Signs: Temp Pulse Resp BP Pulse Ox 97.5 F 94 23 H 107/61 97 04/26/20 22:09 04/26/20 12:13 04/26/20 22:01 04/26/20 22:01 04/26/20 22:01 Intake & Output 04/25/20 04/26/20 04/27/20 06:59 06:59 06:59 Intake Total 1120 Balance 1120 Weight 127.5 kg Exam: General appearance: PRESENT: no acute distress, well-developed, well-nourished, obese white male Head exam: PRESENT: atraumatic, normocephalic Eye exam: PRESENT: conjunctiva pink. ABSENT: scleral icterus Mouth exam: PRESENT: moist Respiratory exam: PRESENT: clear to auscultation bharat. ABSENT: rales, rhonchi, wheezes Cardiovascular exam: PRESENT: RRR. ABSENT: diastolic murmur, rubs, systolic murmur GI/Abdominal exam: PRESENT: normal bowel sounds, soft, suprapubic pressure/mild tenderness, Wooten catheter present ABSENT: distended, guarding, mass, organolmegaly, rebound Neurological exam: PRESENT: alert, awake, oriented to person, oriented to place, oriented to time, oriented to situation Psychiatric exam: PRESENT: appropriate affect, normal mood Skin exam: PRESENT: dry, intact, warm Results Laboratory Results: 04/26/20 21:27 04/26/20 21:27 04/26/20 04/26/20 04/26/20 12:20 13:57 13:57 WBC 20.5 H RBC 4.06 L Hgb 12.2 L Hct 36.2 L MCV 89 MCH 30.0 MCHC 33.7 RDW 13.4 Plt Count 219 Seg Neutrophils % Not Reportable Sodium 141.4 Potassium 4.1 Chloride 103 Carbon Dioxide 24 Anion Gap 14 BUN 28 H Creatinine 1.72 H Est GFR ( Amer) 47 L Glucose 158 H Lactic Acid Calcium 9.7 Total Bilirubin 0.9 AST 32 Alkaline Phosphatase 85 Total Protein 7.1 Albumin 4.2 Urine Color RED Urine Appearance CLOUDY Urine pH 6.0 Ur Specific [place] 1.020 Urine Protein 100 H Urine Glucose (UA) NEGATIVE Urine Ketones NEGATIVE Urine Blood LARGE H Urine Nitrite NEGATIVE Ur Leukocyte Esterase MODERATE H Urine WBC (Auto) >182 Urine RBC (Auto) >182 04/26/20 04/26/20 04/26/20 13:57 21:27 21:27 WBC 22.6 H RBC 3.40 L Hgb 10.5 L Hct 30.0 L MCV 88 MCH 30.8 MCHC 34.9 RDW 13.7 Plt Count 185 Seg Neutrophils % Not Reportable Sodium 136.4 L Potassium 4.1 Chloride 103 Carbon Dioxide 27 Anion Gap 6 BUN 34 H Creatinine 1.93 H Est GFR ( Amer) 41 L Glucose 134 H Lactic Acid 1.6 Calcium 9.1 Total Bilirubin AST Alkaline Phosphatase Total Protein Albumin Urine Color Urine Appearance Urine pH Ur Specific [place] Urine Protein Urine Glucose (UA) Urine Ketones Urine Blood Urine Nitrite Ur Leukocyte Esterase Urine WBC (Auto) Urine RBC (Auto) Impressions: Chest X-Ray 04/26/20 12:55 IMPRESSION: NO ACUTE RADIOGRAPHIC FINDING IN THE CHEST. Cervical Spine CT 04/26/20 18:10 IMPRESSION: 1. No acute findings in the cervical spine. No significant stenosis. 2. Atherosclerotic proximal internal carotid arteries. Head CT 04/26/20 18:10 IMPRESSION: 1. No acute intracranial findings. 2. Ventricles mildly larger compared to cortical sulci. Differential diagnosis between atrophy that is more central versus NPH. Assessment and Plan - Diagnosis (1) Bacterial UTI Is this a current diagnosis for this admission?: Yes Plan: Urine infected on UA, urine culture sent Ceftriaxone IV IV fluids Wooten catheter placed Infection due to urinary retention from BPH (2) Sepsis Qualifiers: Sepsis type: sepsis due to unspecified organism Sepsis acute organ dysfunction status: with acute organ dysfunction Severe sepsis acute organ dysfunction type: acute renal failure Acute renal failure type: unspecified Severe sepsis shock status: without septic shock Qualified Code(s): A41.9 - Sepsis, unspecified organism; R65.20 - Severe sepsis without septic shock; N17.9 - Acute kidney failure, unspecified Is this a current diagnosis for this admission?: Yes Plan: Due to UTI as above Antibiotics, IV fluids Urine culture Blood culture (3) KLAUS (acute kidney injury) Is this a current diagnosis for this admission?: Yes Plan: Due to obstructive uropathy and sepsis Wooten catheter IV fluids Trend BMP (4) HTN (hypertension) Is this a current diagnosis for this admission?: Yes Plan: Hold all antihypertensives (5) HLD (hyperlipidemia) Is this a current diagnosis for this admission?: Yes Plan: Hold statin for now (6) Acute urinary retention Is this a current diagnosis for this admission?: Yes Plan: Wooten catheter Needs close follow-up with urology outpatient Restart Flomax when BP improves, low on admission (7) BPH (benign prostatic hyperplasia) Qualifiers: Lower urinary tract symptom presence: symptoms present Lower urinary tract symptom detail: urinary retention Qualified Code(s): N40.1 - Benign prostatic hyperplasia with lower urinary tract symptoms; R33.8 - Other retention of urine Is this a current diagnosis for this admission?: Yes - Time Time Spent with patient: 35 or more minutes Medications reviewed and adjusted accordingly: Yes Anticipated Discharge Disposition: Home, Self Care Anticipated Discharge Timeframe: within 48 hours - Inpatient Certification Based on my medical assessment, after consideration of the patient's co morbidities, presenting symptoms, or acuity I expect that the services needed warrant INPATIENT care.: Yes I certify that my determination is in accordance with my understanding of Medicare's requirements for reasonable and necessary INPATIENT services [42 CFR 412.3e].: Yes Medical Necessity: Significant Comorbidiites Make Outpatient Treatment Too Risky, Need Close Monitoring Due to Risk of Patient Decompensation, Need For IV Fluids, Need for IV Antibiotics, Risk of Complication if Not Cared For in Hospital, Risk of Diagnosis Which Will Require Inpatient Eval/Care/Monitoring
[2020-04-27 05:30] LABS: ABSOLUTE BASOPHILS # (AUTO) 0.1 10^3/uL (0.0-0.2); ABSOLUTE LYMPHOCYTES (AUTO) 1.6 10^3/uL (0.5-4.7); ABSOLUTE MONOCYTES (AUTO) 1.2 10^3/uL (0.1-1.4); ABSOLUTE NEUT (AUTO) 16.7 10^3/uL (1.7-8.2); BASOPHILS % (AUTO) 0.4 % (0-2); EOSINOPHILS % (AUTO) 0.2 % (0-6); HEMATOCRIT 31.8 % (37.9-51.0); HEMOGLOBIN 10.8 g/dL (13.5-17.0); LYMPHOCYTES % (AUTO) 8.4 % (13-45); MEAN CORPUSCULAR VOLUME 88 fl (80-97); MONOCYTES % (AUTO) 6.1 % (3-13); PLATELET COUNT 185 10^3/uL (150-450); RED BLOOD COUNT 3.61 10^6/uL (4.35-5.55); RED CELL DISTRIBUTION WIDTH 13.6 % (11.5-14.0); SEGMENTED NEUTROPHILS % (AUTO) 84.9 % (42-78); TOTAL CELLS COUNTED % (AUTO) 100 %; WHITE BLOOD COUNT 19.6 10^3/uL (4.0-10.5)
[2020-04-27 05:48] LABS: ANION GAP 11 (5-19); BLOOD UREA NITROGEN 34 mg/dL (7-20); CARBON DIOXIDE 25 mmol/L (22-30); CHLORIDE 104 mmol/L (98-107); GLUCOSE 93 mg/dL (75-110); POTASSIUM 3.9 mmol/L (3.6-5.0)
[2020-04-27 05:49] LABS: PHOSPHORUS 3.8 mg/dL (2.5-4.5)
[2020-04-27] MEDS: HEPARIN SOD (PORCINE) 5,000 UNIT/ML 1 ML VIAL SUBCUT SCH ×3 (06:02→21:43)
[2020-04-27] MEDS: ACETAMINOPHEN 325 MG TABLET PO PRN ×3 (06:04→23:12)
[2020-04-27] MEDS: DOCUSATE SODIUM 100 MG CAPSULE PO SCH ×2 (10:25→10:34)
[2020-04-27] MEDS: RINGERS SOLUTION,LACTATED 1,000 ML IV PRN ×2 (10:35→18:42)
--- NOTE | 2020-04-27 16:45 | PDOC PROGRESS REPORT ---
Subjective Date:: 04/27/20 Subjective:: No adverse events overnight. No new complaints. Vital signs been stable. He h as had good urine output but his urine is still very dark. He said he feels better than he did when he came in. He has been eating and drinking without difficulty. Reason For Visit: UTI,SEPSIS,URINARY OBSTRUCTION,KLAUS Physical Exam Vital Signs: Temp Pulse Resp BP Pulse Ox 98.5 F 80 16 122/65 95 04/27/20 14:53 04/27/20 14:53 04/27/20 14:53 04/27/20 14:53 04/27/20 14:53 Intake & Output 04/26/20 04/27/20 04/28/20 06:59 06:59 06:59 Intake Total 1470 420 Output Total 1905 0 Balance -435 420 Weight 85.3 kg General appearance: PRESENT: no acute distress, cooperative, disheveled Respiratory exam: PRESENT: clear to auscultation bharat, symmetrical, unlabored. ABSENT: accessory muscle use, chest wall tenderness, crackles, prolonged expiratory phas, rhonchi, tachypnea, wheezes Cardiovascular exam: PRESENT: RRR, +S1, +S2 Pulses: PRESENT: normal carotid pulses Vascular exam: PRESENT: normal capillary refill GI/Abdominal exam: PRESENT: normal bowel sounds, soft. ABSENT: distended, guarding, rebound, tenderness Gentrourinary exam: PRESENT: indwelling catheter Extremities exam: ABSENT: clubbing, pedal edema Musculoskeletal exam: PRESENT: normal inspection. ABSENT: deformity Neurological exam: PRESENT: alert, awake, oriented to person, oriented to place, oriented to situation Psychiatric exam: PRESENT: appropriate affect, normal mood Skin exam: PRESENT: dry, warm Results Laboratory Results: 04/27/20 04:22 04/27/20 04:22 04/26/20 04/26/20 04/27/20 21:27 21:27 04:22 WBC 22.6 H 19.6 H RBC 3.40 L 3.61 L Hgb 10.5 L 10.8 L Hct 30.0 L 31.8 L MCV 88 88 MCH 30.8 30.0 MCHC 34.9 34.0 RDW 13.7 13.6 Plt Count 185 185 Seg Neutrophils % Not Reportable 84.9 H Sodium 136.4 L Potassium 4.1 Chloride 103 Carbon Dioxide 27 Anion Gap 6 BUN 34 H Creatinine 1.93 H Est GFR ( Amer) 41 L Glucose 134 H Calcium 9.1 Phosphorus Magnesium 04/27/20 04:22 WBC RBC Hgb Hct MCV MCH MCHC RDW Plt Count Seg Neutrophils % Sodium 139.9 Potassium 3.9 Chloride 104 Carbon Dioxide 25 Anion Gap 11 BUN 34 H Creatinine 1.49 H Est GFR ( Amer) 56 L Glucose 93 Calcium 9.0 Phosphorus 3.8 Magnesium 2.0 Impressions: Chest X-Ray 04/26/20 12:55 IMPRESSION: NO ACUTE RADIOGRAPHIC FINDING IN THE CHEST. Cervical Spine CT 04/26/20 18:10 IMPRESSION: 1. No acute findings in the cervical spine. No significant stenosis. 2. Atherosclerotic proximal internal carotid arteries. Head CT 04/26/20 18:10 IMPRESSION: 1. No acute intracranial findings. 2. Ventricles mildly larger compared to cortical sulci. Differential diagnosis between atrophy that is more central versus NPH. Assessment and Plan - Diagnosis (1) KLAUS (acute kidney injury) Is this a current diagnosis for this admission?: Yes (2) Acute urinary retention Is this a current diagnosis for this admission?: Yes (3) BPH (benign prostatic hyperplasia) Qualifiers: Lower urinary tract symptom presence: symptoms present Lower urinary tract symptom detail: urinary retention Qualified Code(s): N40.1 - Benign prostatic hyperplasia with lower urinary tract symptoms; R33.8 - Other retention of urine Is this a current diagnosis for this admission?: Yes (4) Bacterial UTI Is this a current diagnosis for this admission?: Yes (5) HLD (hyperlipidemia) Qualifiers: Hyperlipidemia type: unspecified Qualified Code(s): E78.5 - Hyperlipidemia, unspecified Is this a current diagnosis for this admission?: Yes (6) HTN (hypertension) Qualifiers: Hypertension type: essential hypertension Qualified Code(s): I10 - Essential (primary) hypertension Is this a current diagnosis for this admission?: Yes (7) Sepsis Qualifiers: Sepsis type: sepsis due to unspecified organism Sepsis acute organ dysfunction status: with acute organ dysfunction Severe sepsis acute organ dysfunction type: acute renal failure Acute renal failure type: unspecified Severe sepsis shock status: without septic shock Qualified Code(s): A41.9 - Sepsis, unspecified organism; R65.20 - Severe sepsis without septic shock; N17.9 - Acute kidney failure, unspecified Is this a current diagnosis for this admission?: Yes - Plan Summary Summary: He is on IV Rocephin. Some organisms are starting to grow out of the urine. We will follow-up for the identification and susceptibility. We will follow his blood cultures. Creatinine is coming down with IV fluids. We will continue to monitor electrolytes and urine output. - Time Time Spent with patient: 15-24 minutes Anticipated Discharge Disposition: Unknown Anticipated Discharge Timeframe: Unknown
[2020-04-27] MEDS ORDERED: CEFTRIAXONE 2 GM/D5W RTU 2 GM/50 ML RTUPB IV SCH (22:00)
[2020-04-28] MEDS: HEPARIN SOD (PORCINE) 5,000 UNIT/ML 1 ML VIAL SUBCUT SCH (05:40)
[2020-04-28 06:35] LABS: ABSOLUTE BASOPHILS # (AUTO) 0.1 10^3/uL (0.0-0.2); ABSOLUTE EOSINOPHILS # (AUTO) 0.2 10^3/uL (0.0-0.6); ABSOLUTE LYMPHOCYTES (AUTO) 1.6 10^3/uL (0.5-4.7); ABSOLUTE MONOCYTES (AUTO) 0.8 10^3/uL (0.1-1.4); ABSOLUTE NEUT (AUTO) 12.4 10^3/uL (1.7-8.2); BASOPHILS % (AUTO) 0.4 % (0-2); HEMATOCRIT 31.3 % (37.9-51.0); HEMOGLOBIN 10.9 g/dL (13.5-17.0); LYMPHOCYTES % (AUTO) 10.9 % (13-45); MEAN CORPUSCULAR HEMOGLOBIN 30.8 pg (27.0-33.4); MEAN CORPUSCULAR HGB CONC 34.8 g/dL (32.0-36.0); MEAN CORPUSCULAR VOLUME 88 fl (80-97); MONOCYTES % (AUTO) 5.3 % (3-13); PLATELET COUNT 181 10^3/uL (150-450); RED BLOOD COUNT 3.54 10^6/uL (4.35-5.55); RED CELL DISTRIBUTION WIDTH 13.7 % (11.5-14.0); SEGMENTED NEUTROPHILS % (AUTO) 82.4 % (42-78); TOTAL CELLS COUNTED % (AUTO) 100 %
[2020-04-28 06:55] LABS: ANION GAP 9 (5-19); BLOOD UREA NITROGEN 19 mg/dL (7-20); CALCIUM 8.9 mg/dL (8.4-10.2); CARBON DIOXIDE 27 mmol/L (22-30); CHLORIDE 107 mmol/L (98-107); GLUCOSE 92 mg/dL (75-110); POTASSIUM 3.8 mmol/L (3.6-5.0)
[2020-04-28] MEDS ORDERED: INFLUENZA QUAD (6MOS+) 2020-21 VAC 0.5 ML SYR IM ONE (08:00)
[2020-04-28] MEDS: DOCUSATE SODIUM 100 MG CAPSULE PO SCH (09:20)
[2020-04-28 12:38] VITALS: BP 118/61
--- NOTE | 2020-04-28 15:11 | PDOC DISCHARGE SUMMARY ---
Impression - Admit/DC Date/PCP Admission Date/Primary Care Provider: 04/26/20 22:51 GUERRERO POST MD Discharge Date: 04/28/20 - Discharge Diagnosis (1) KLAUS (acute kidney injury) Is this a current diagnosis for this admission?: Yes (2) Acute urinary retention Is this a current diagnosis for this admission?: Yes (3) BPH (benign prostatic hyperplasia) Is this a current diagnosis for this admission?: Yes (4) Bacterial UTI Is this a current diagnosis for this admission?: Yes (5) HLD (hyperlipidemia) Is this a current diagnosis for this admission?: Yes (6) HTN (hypertension) Is this a current diagnosis for this admission?: Yes (7) Sepsis Is this a current diagnosis for this admission?: Yes - Assessment Summary: He is on IV Rocephin. Some organisms are starting to grow out of the urine. We will follow-up for the identification and susceptibility. We will follow his blood cultures. Creatinine is coming down with IV fluids. We will continue to monitor electrolytes and urine output. - Additional Information Resuscitation Status: Do Not Resuscitate Discharge Diet: Cardiac Discharge Activity: Activity As Tolerated Referrals: GUERRERO POST MD [Primary Care Provider] - 04/28/20 11:30 am (THE OFFICE WILL CONTACT THE PATIENT WITH A FOLLOW UP APPT) Prescriptions: Amoxicillin 1 tab PO TID #30 tab Ciprofloxacin HCl [Cipro 500 mg Tablet] 500 mg PO BID #20 tablet Home Medications: Allopurinol [Zyloprim] 300 mg PO DAILY 02/03/16 Aspirin [Aspirin EC] 81 mg PO DAILY 02/03/16 Atorvastatin Calcium [Lipitor 40 mg Tablet] 40 mg PO QHS 02/03/16 Colchicine [Colcrys] 0.6 mg PO DAILYP PRN 02/03/16 Lisinopril 10 mg PO DAILY 02/03/16 Metoprolol Succinate [Toprol Xl 50 mg Tab.sr] 50 mg PO DAILY 02/03/16 Fexofenadine HCl [Betsey Allergy] 180 tab PO DAILY 04/27/20 Fluticasone Propionate [Flonase Nasal [place] 50 Mcg/[place] 16 gm] 1 spray NASL DAILY 04/27/20 Multivit-Min/FA/Lycopen/Lutein [Centrum Silver Men Tablet] 1 tab PO DAILY 04/27/20 Tamsulosin HCl [Flomax] 0.4 mg PO DAILY 04/27/20 Amoxicillin 1 tab PO TID #30 tab 04/28/20 Ciprofloxacin HCl [Cipro 500 mg Tablet] 500 mg PO BID #20 tablet 04/28/20 History of Present Illiness History of Present Illness: CLAUDINE PHAN is a 74 year old male with past medical history significant for BPH followed by urology, HTN, HLD who presents to the ED after 1 week of fever/chills/rigors/intermittent hematuria and 1 day history of collapse due to generalized weakness and fatigue. Approximately 1 week ago patient was seen by urology for urinary retention and BPH, sent home with instructions for self catheterization 4 times per day however patient states he has not been doing this and that most has done it 3 times per day. He states he simply does not feel the urge to urinate and does not catheterize himself when he does not have the urge. I counseled him he may not be able to sense urinary retention anymore. Urology started the patient on Flomax and told him to follow-up in 1 month. Over the past week, patient has gotten progressively more ill with the above symptoms and he called his urologist who told the patient to go to the ER. On admission, patient had a white blood cell count over 20, UA clearly infected, elevated creatinine and repeat BMP showed an even higher creatinine. I instructed the ER to place Wooten catheter and start antibiotics. was notified of plan to admit the patient and the risks of COVID-19 infection from hospitalization were discussed with her and she agreed to hospitalization rather than discharge home with antibiotics and close follow-up. Given worsening labs I am in agreement with this plan. Patient admitted for UTI and sepsis. Antihypertensives will be held due to relative low BP and dehydration. IV fluids, antibiotics. Nephrology consult may be needed if creatinine continues to rise. Patient and aware that we do not have urology in this facility. Hospital Course Hospital Course: His creatinine improved with IV fluids and antibiotics. It is back down to normal now. He has had good urine output. He grew 2 different organisms out of his urine, and Enterococcus and Pseudomonas. The Enterococcus was susceptible to ampicillin and the Pseudomonas was susceptible to fluoroquinolones. He will continue 10 more days of antibiotics as an outpatient with amoxicillin and ciprofloxacin. He is on Flomax and self catheterizes at home, and will continue to do so. He is to do this 4 times a day at least. He has outpatient follow-up with urology. He is to resume his usual home medications as well. His labs and examination were reassuring and he was discharged in stable condition. Physical Exam Vital Signs: Temp Pulse Resp BP Pulse Ox 98.7 F 85 24 H 118/61 92 04/28/20 12:35 04/28/20 12:35 04/28/20 12:35 04/28/20 12:35 04/28/20 12:35 Intake & Output 04/27/20 04/28/20 04/29/20 06:59 06:59 06:59 Intake Total 1470 3760 497 Output Total 1905 3600 1150 Balance -435 160 -653 Weight 85.3 kg 85.3 kg General appearance: PRESENT: no acute distress, cooperative, disheveled Respiratory exam: PRESENT: clear to auscultation bharat, symmetrical, unlabored. ABSENT: accessory muscle use, chest wall tenderness, crackles, prolonged expiratory phas, rhonchi, tachypnea, wheezes Cardiovascular exam: PRESENT: RRR, +S1, +S2 Pulses: PRESENT: normal carotid pulses Vascular exam: PRESENT: normal capillary refill GI/Abdominal exam: PRESENT: normal bowel sounds, soft. ABSENT: distended, guarding, rebound, tenderness Gentrourinary exam: PRESENT: indwelling catheter Extremities exam: ABSENT: clubbing, pedal edema Musculoskeletal exam: PRESENT: normal inspection. ABSENT: deformity Neurological exam: PRESENT: alert, awake, oriented to person, oriented to place, oriented to situation Psychiatric exam: PRESENT: appropriate affect, normal mood Skin exam: PRESENT: dry, warm Results Laboratory Results: WBC 15.0 10^3/uL (4.0-10.5) H 04/28/20 06:06 RBC 3.54 10^6/uL (4.35-5.55) L 04/28/20 06:06 Hgb 10.9 g/dL (13.5-17.0) L 04/28/20 06:06 Hct 31.3 % (37.9-51.0) L 04/28/20 06:06 MCV 88 fl (80-97) 04/28/20 06:06 MCH 30.8 pg (27.0-33.4) 04/28/20 06:06 MCHC 34.8 g/dL (32.0-36.0) 04/28/20 06:06 RDW 13.7 % (11.5-14.0) 04/28/20 06:06 Plt Count 181 10^3/uL (150-450) 04/28/20 06:06 Lymph % (Auto) 10.9 % (13-45) L 04/28/20 06:06 [place] % (Auto) 5.3 % (3-13) 04/28/20 06:06 Eos % (Auto) 1.0 % (0-6) 04/28/20 06:06 Baso % (Auto) 0.4 % (0-2) 04/28/20 06:06 Absolute Neuts (auto) 12.4 10^3/uL (1.7-8.2) H 04/28/20 06:06 Absolute Lymphs (auto) 1.6 10^3/uL (0.5-4.7) 04/28/20 06:06 Absolute Monos (auto) 0.8 10^3/uL (0.1-1.4) 04/28/20 06:06 Absolute Eos (auto) 0.2 10^3/uL (0.0-0.6) 04/28/20 06:06 Absolute Basos (auto) 0.1 10^3/uL (0.0-0.2) 04/28/20 06:06 Total Counted 100 04/26/20 21:27 Seg Neutrophils % 82.4 % (42-78) H 04/28/20 06:06 Seg Neuts % (Manual) 89 % (42-78) H 04/26/20 21:27 Band Neutrophils % 2 % (3-5) L 04/26/20 21:27 Lymphocytes % (Manual) 7 % (13-45) L 04/26/20 21:27 Monocytes % (Manual) 2 % (3-13) L 04/26/20 21:27 Eosinophils % (Manual) 0 % (0-6) 04/26/20 21:27 Basophils % (Manual) 0 % (0-2) 04/26/20 21:27 Abs Neuts (Manual) 20.6 10^3/uL (1.7-8.2) H 04/26/20 21:27 Abs Lymphs (Manual) 1.6 10^3/uL (0.5-4.7) 04/26/20 21:27 Abs Monocytes (Manual) 0.5 10^3/uL (0.1-1.4) 04/26/20 21:27 Absolute Eos (Manual) 0.0 10^3/uL (0.0-0.6) 04/26/20 21:27 Abs Basophils (Manual) 0.0 10^3/uL (0.0-0.2) 04/26/20 21:27 Toxic Granulation SLIGHT 04/26/20 21:27 Platelet Comment ADEQUATE 04/26/20 21:27 Polychromasia SLIGHT 04/26/20 13:57 RBC Morph Comment NORMO-CYTIC/CHROMIC 04/26/20 21:27 Sodium 142.7 mmol/L (137-145) 04/28/20 06:06 Potassium 3.8 mmol/L (3.6-5.0) 04/28/20 06:06 Chloride 107 mmol/L (98-107) 04/28/20 06:06 Carbon Dioxide 27 mmol/L (22-30) 04/28/20 06:06 Anion Gap 9 (5-19) 04/28/20 06:06 BUN 19 mg/dL (7-20) 04/28/20 06:06 Creatinine 0.96 mg/dL (0.52-1.25) 04/28/20 06:06 Est GFR ( Amer) > 60 (>60) 04/28/20 06:06 Est GFR (MDRD) Non-Af > 60 (>60) 04/28/20 06:06 Glucose 92 mg/dL (75-110) 04/28/20 06:06 POC Glucose 156 mg/dL (70-110) H 04/26/20 13:50 Lactic Acid 1.6 mmol/L (0.7-2.1) 04/26/20 13:57 Calcium 8.9 mg/dL (8.4-10.2) 04/28/20 06:06 Phosphorus 3.8 mg/dL (2.5-4.5) 04/27/20 04:22 Magnesium 2.0 mg/dL (1.6-2.3) 04/27/20 04:22 Total Bilirubin 0.9 mg/dL (0.2-1.3) 04/26/20 13:57 Direct Bilirubin 0.3 mg/dL (0.0-0.4) 04/26/20 13:57 Neonat Total Bilirubin Not Reportable 04/26/20 13:57 Neonat Direct Bilirubin Not Reportable 04/26/20 13:57 Neonat Indirect Bili Not Reportable 04/26/20 13:57 AST 32 U/L (17-59) 04/26/20 13:57 ALT 23 U/L (<50) 04/26/20 13:57 Alkaline Phosphatase 85 U/L (38-126) 04/26/20 13:57 Total Protein 7.1 g/dL (6.3-8.2) 04/26/20 13:57 Albumin 4.2 g/dL (3.5-5.0) 04/26/20 13:57 Urine Color RED 04/26/20 12:20 Urine Appearance CLOUDY 04/26/20 12:20 Urine pH 6.0 (5.0-9.0) 04/26/20 12:20 Ur Specific [place] 1.020 04/26/20 12:20 Urine Protein 100 mg/dL (NEGATIVE) H 04/26/20 12:20 Urine Glucose (UA) NEGATIVE mg/dL (NEGATIVE) 04/26/20 12:20 Urine Ketones NEGATIVE mg/dL (NEGATIVE) 04/26/20 12:20 Urine Blood LARGE (NEGATIVE) H 04/26/20 12:20 Urine Nitrite NEGATIVE (NEGATIVE) 04/26/20 12:20 Urine Bilirubin NEGATIVE (NEGATIVE) 04/26/20 12:20 Urine Urobilinogen NEGATIVE mg/dL (<2.0) 04/26/20 12:20 Ur Leukocyte Esterase MODERATE (NEGATIVE) H 04/26/20 12:20 Urine WBC (Auto) >182 /HPF 04/26/20 12:20 Urine RBC (Auto) >182 /HPF 04/26/20 12:20 U Hyaline Cast (Auto) 11 /LPF 04/26/20 12:20 Urine Mucus (Auto) FEW /LPF 04/26/20 12:20 Urine Ascorbic Acid NEGATIVE (NEGATIVE) 04/26/20 12:20 Impressions: Chest X-Ray 04/26/20 12:55 IMPRESSION: NO ACUTE RADIOGRAPHIC FINDING IN THE CHEST. Cervical Spine CT 04/26/20 18:10 IMPRESSION: 1. No acute findings in the cervical spine. No significant stenosis. 2. Atherosclerotic proximal internal carotid arteries. Head CT 04/26/20 18:10 IMPRESSION: 1. No acute intracranial findings. 2. Ventricles mildly larger compared to cortical sulci. Differential diagnosis between atrophy that is more central versus NPH. Plan Time Spent: Greater than 30 Minutes Stroke Is this a Stroke Patient?: No Acute Heart Failure Is this a Heart Failure Patient?: No
== END 2020-04-28 15:24 | disposition home or self-care (01) | DRG 872 ==
LOC: ER 11:44 → EH 22:51 → 4W 04-27 00:33
PROVIDERS: ADMIT Internal Medicine; ATTEND Internal Medicine
DX: A41.9 Sepsis, unspecified organism (principal); N39.0 Urinary tract infection, site not specified; N17.9 Acute kidney failure, unspecified; R65.20 Severe sepsis without septic shock; B95.2 Enterococcus as the cause of diseases classified elsewhere; B96.5 Pseudomonas (aeruginosa) (mallei) (pseudomallei) as the cause of diseases classified elsewhere; I10 Essential (primary) hypertension; E78.00 Pure hypercholesterolemia, unspecified; N40.1 Benign prostatic hyperplasia with lower urinary tract symptoms; R33.8 Other retention of urine; Z79.82 Long term (current) use of aspirin; Z66 Do not resuscitate; Z23 Encounter for immunization
CPT/HCPCS: 36415; 51702; 70450; 71045; 72125; 80048; 80053; 81001; 82962; 83605; 83735; 84100; 85025; 87040; 87086; 87088; 87186; 96361; 96365; 99285; J0696; J2543; J7120